=== PATIENT | male | born 1990 | race African-American/Black ===

== ENCOUNTER 2020-07-18 21:56 | Emergency (ER) | payer OTHER, SELFPAY ==
[2020-07-18] MEDS ORDERED: Ibuprofen 800 MG TAB ONE (22:09)
== END 2020-07-18 22:13 | disposition home or self-care (01) ==
LOC: NAV ERS 21:56
DX: G44.209 Tension-type headache, unspecified, not intractable (principal)
CPT/HCPCS: 99283

== ENCOUNTER 2021-04-30 14:54 | Emergency (ER) | payer SELFPAY ==
[2021-05-01 17:38] LABS: SARS-CoV-2 PCR by NAA Not Detected (NotDetected)
== END 2021-04-30 15:50 | disposition home or self-care (01) ==
LOC: NAV ERS 14:54
DX: Z20.822 Contact with and (suspected) exposure to COVID-19 (principal)
CPT/HCPCS: 99283; U0003; U0005

== ENCOUNTER 2022-04-15 21:35 | Emergency (ER) | payer SELFPAY ==
[2022-04-15] MEDS ORDERED: Naproxen 500 MG TAB ONE (23:53)
[2022-04-15] MEDS ORDERED: predniSONE 20 MG TAB ONE (23:53)
== END 2022-04-15 23:57 | disposition home or self-care (01) ==
LOC: NAV ERS 21:35
DX: S39.012A Strain of muscle, fascia and tendon of lower back, initial encounter (principal); X50.1XXA Overexertion from prolonged static or awkward postures, initial encounter
CPT/HCPCS: 99283; J7512